=== PATIENT | female | born 1965 | race Caucasian/White ===

== ENCOUNTER 2018-01-03 14:46 | Emergency (ER) | END 2018-01-03 19:55 | disposition home or self-care (01) ==

== ENCOUNTER 2018-07-18 01:24 | Emergency (ER) | payer OTHER ==
[~2018-07-18] VITALS: Ht 157.5 cm; Wt 106.8 kg
[~2018-07-18 01:24] MED LIST: ACET1TAB40 PO; APIX5TAB PO; LEVO150T87 PO; [UNRECOGNIZED DRUG - CODE]
[2018-07-18 01:31] VITALS: BP 134/84; PULSE 101; RESP 18; Ht 157.5 cm; Wt 106.8 kg
[2018-07-18] MEDS ORDERED: KETOROLAC 60 MG INJ IM STA (06:15)
[2018-07-18] MEDS ORDERED: DEXAMETHASONE 10 MG/ML 1 ML INJ IM ONE (06:30)
[2018-07-18] MEDS ORDERED: PRED20TA PO (07:51)
[2018-07-18] MEDS ORDERED: NAPR-985 PO (07:51)
--- NOTE | 2018-07-18 15:43 | ERD ---
ER Documentation Chief Complaint Chief Complaint pain/shakes both legs since yesterday, denies trauma. hx of dvt left leg HPI 52-year-old female presenting with shaking to bilateral legs. Patient states that she has been taking iron pills that sometimes causes her shakiness. Denies any swelling or pain. Denies recent trauma. Denies medical problems. Medical history of DVT. Surgical history on the left knee due to torn meniscus. ROS All systems reviewed and are negative except as per history of present illness. Medications Home Meds Active Scripts Prednisone* (Prednisone*) 20 Mg Tab, 40 MG PO DAILY for 4 Days, #8 TAB Prov:PAOLA RUSS PA-C 07/18/18 Naproxen* (Naprosyn*) 500 Mg Tablet, 500 MG PO BID PRN for PAIN AND/OR INFLAMMATION, #30 TAB Prov:PAOLA RUSS PA-C 07/18/18 Acetaminophen with Codeine (Acetaminophen-Cod #3 Tablet) 1 Each Tablet, 1 TAB PO Q6H PRN for PAIN, #20 TAB Prov:NICKIE ACOSTA PA-C 01/03/18 Apixaban* (Eliquis*) 5 Mg Tablet, 10 MG PO BID for 30 Days, TAB Prov:NICKIE ACOSTA PA-C 01/03/18 Reported Medications Phentermine Hcl (Phentermine Hcl) 37.5 Mg Capsule, daily 12/15/11 Levothyroxine Sodium* (Synthroid*) 150 Mcg Tablet, PO DAILY 09/18/11 Allergies Allergies: Coded Allergies: No Known Allergy (Unverified , 09/18/11) PMhx/Soc History of Surgery: Yes (Thyroidectomy (1983),Gastric Bypass (2002)) Anesthesia Reaction: No Hx Neurological Disorder: No Hx Respiratory Disorders: No Hx Cardiac Disorders: No Hx Psychiatric Problems: No Hx Miscellaneous Medical Probl: Yes (Fragile X Syndrome Carrier;Thyroid CA;L Thigh DVT) Hx Alcohol Use: No Hx Substance Use: No Hx Tobacco Use: Yes Smoking Status: Former smoker FmHx Family History: No diabetes, No coronary disease, No other Physical Exam Vitals Vital Signs Date Temp Pulse Resp B/P (MAP) Pulse Ox O2 O2 Flow FiO2 Time Delivery Rate 07/18/18 98.2 101 18 134/84 100 01:31 (101) Physical Exam GENERAL: The patient is well-appearing, well-nourished, in no acute distress CHEST: Clear to auscultation bilaterally. There are no rales, wheezes or rhonchi. HEART: Regular rate and rhythm. No murmurs, clicks, rubs or gallops. EXTREMITIES: Equal pulses bilaterally. There is no peripheral clubbing, cyanosis or edema. No focal swelling or erythema. Full range of motion. Grossly neurovascularly intact. NEUROLOGIC: Alert and oriented. Cranial nerves II through XII intact. Motor strength in all 4 extremities with 5 out of [address] strength. Sensation grossly inta ct. Normal speech and gait. SKIN: There is no apparent rash or petechiae. The skin is warm and dry. Result Diagram: 07/18/1840 07/18/1840 Results 24 hrs Laboratory Tests Test 07/18/18 06:27 07/18/18 06:40 Urine Color YELLOW Urine Clarity CLEAR Urine pH 6.0 Urine Specific [place] 1.023 Urine Ketones NEGATIVE mg/dL Urine Nitrite NEGATIVE mg/dL Urine Bilirubin NEGATIVE mg/dL Urine Urobilinogen 1+ mg/dL Urine Leukocyte Esterase NEGATIVE Arc[place]/ul Urine Hemoglobin NEGATIVE mg/dL Urine Glucose NEGATIVE mg/dL Urine Total Protein NEGATIVE mg/dl White Blood Count 7.6 10^3/ul Red Blood Count 4.72 10^6/ul Hemoglobin 10.9 g/dl Hematocrit 35.7 % Mean Corpuscular Volume 75.6 fl Mean Corpuscular Hemoglobin 23.1 pg Mean Corpuscular Hemoglobin Concent 30.5 g/dl Red Cell Distribution Width 17.2 % Platelet Count 398 10^3/UL Mean Platelet Volume 9.5 fl Immature Granulocytes % 0.300 % Neutrophils % 69.4 % Lymphocytes % 23.2 % Monocytes % 6.2 % Eosinophils % 0.5 % Basophils % 0.4 % Nucleated Red Blood Cells % 0.0 /100WBC Immature Granulocytes # 0.020 10^3/ul Neutrophils # 5.3 10^3/ul Lymphocytes # 1.8 10^3/ul Monocytes # 0.5 10^3/ul Eosinophils # 0.0 10^3/ul Basophils # 0.0 10^3/ul Nucleated Red Blood Cells # 0.0 10^3/ul Sodium Level 145 mmol/L Potassium Level 4.3 mmol/L Chloride Level 108 mmol/L Carbon Dioxide Level 27 mmol/L Anion Gap 10 Blood Urea Nitrogen 15 mg/dl Creatinine 0.53 mg/dl Est Glomerular Filtrat Rate mL/min > 60 mL/min Glucose Level 112 mg/dl Calcium Level 9.3 mg/dl Total Bilirubin 0.2 mg/dl Direct Bilirubin 0.00 mg/dl Indirect Bilirubin 0.2 mg/dl Aspartate Amino Transf (AST/SGOT) 26 IU/L Alanine Aminotransferase (ALT/SGPT) 21 IU/L Alkaline Phosphatase 115 IU/L Total Protein 7.6 g/dl Albumin 4.4 g/dl Globulin 3.20 g/dl Albumin/Globulin Ratio 1.37 Current Medications Medications Dose Sig/[place] Start Time Status Last (Trade) Ordered Route PRN Stop Time Admin Dose Reason Admin 10 mg ONCE ONCE 07/18/18 DC 07/18/18 Dexamethasone IM 06:30 07/18/18 06:53 (Decadron) 06:31 Ketorolac 60 mg ONCE STAT 07/18/18 DC 07/18/18 Tromethamine IM 06:15 07/18/18 06:53 (Toradol) 06:16 Procedures/MDM MDM: 52-year-old female presenting with shaking legs. Patient's exam is non- concerning. I have low suspicion for electrolyte imbalance. I have low suspicion for infectious etiology. I have low suspicion for neuro deficit. Patient is discharged stricter precautions and told to follow-up with primary care within 1-2 days for close evaluation. Patient is told if symptoms change or worsen to return immediately to the ER. All questions answered at discharge Departure Diagnosis: Primary Impression: Bilateral leg pain Condition: Stable Patient Instructions: Paraesthesias Referrals: [facility] YOU HAVE RECEIVED A MEDICAL SCREENING EXAM AND THE RESULTS INDICATE THAT YOU DO NOT HAVE A CONDITION THAT REQUIRES URGENT TREATMENT IN THE EMERGENCY DEPARTMENT. FURTHER EVALUATION AND TREATMENT OF YOUR CONDITION CAN WAIT UNTIL YOU ARE SEEN IN YOUR DOCTORS OFFICE WITHIN THE NEXT 1-2 DAYS. IT IS YOUR RESPONSIBILITY TO MAKE AN APPOINTMENT FOR FOLOW-UP CARE. IF YOU HAVE A PRIMARY DOCTOR --you should call your primary doctor and schedule an appointment IF YOU DO NOT HAVE A PRIMARY DOCTOR YOU CAN CALL OUR PHYSICIAN REFERRAL HOTLINE AT IF YOU CAN NOT AFFORD TO SEE A PHYSICIAN YOU CAN CHOSE FROM THE FOLLOWING [facility] [address]. [facility] [address] [facility] [address] [facility] [address] [facility] [address] [facility]. [facility] [address] Additional Instructions: FOLLOW UP WITH YOUR PRIMARY CARE PHYSICIAN TOMORROW.Return to this facility if you are not improving as expected. PAOLA RUSS PA-C Jul 18, 2018 15:43
== END 2018-07-18 08:04 | disposition home or self-care (01) ==
LOC: FTE 01:24
DX: M79.604 Pain in right leg (principal); M79.605 Pain in left leg; Z85.850 Personal history of malignant neoplasm of thyroid; Z87.891 Personal history of nicotine dependence
CPT/HCPCS: 80053; 81003; 85025; 96372; J1100; J1885; Z7502

== ENCOUNTER 2018-12-10 19:05 | Emergency (ER) | payer OTHER ==
[~2018-12-10] VITALS: Ht 157.5 cm; Wt 96.9 kg
[~2018-12-10 19:05] MED LIST changes: +NAPR-985 PO; +PRED20TA PO
[2018-12-10 19:19] VITALS: Ht 157.5 cm; Wt 96.9 kg
[2018-12-10] MEDS ORDERED: ACETAMINOPHEN 325 MG TAB PO ONE (20:00)
[2018-12-10] MEDS ORDERED: LIDOCAINE 1% (MDV) 10 ML INJ INJ STA (20:00)
[2018-12-10] MEDS ORDERED: ACET1TAB40 PO (20:22)
[2018-12-10] MEDS ORDERED: CIPR500T4 PO (20:22)
--- NOTE | 2018-12-10 20:26 | ERD ---
ER Documentation Chief Complaint Chief Complaint left foot lac, stepped on metal x 10 min ago HPI 52-year-old female sustained a laceration of the left foot after stepping on a metal object which is been sticking up from the dirt in her yard. Tetanus is up-to-date. She has had bleeding. She is on Xarelto for left lower extremity DVT. The object is some type of the latch of a door did not break patient is 100% confident there is no broken part of the metal. Her primary complaint of laceration of foot denies bony pain or restricted range of motion or deficits. ROS All systems reviewed and are negative except as per history of present illness. Medications Home Meds Active Scripts Acetaminophen with Codeine (Acetaminophen-Cod #3 Tablet) 1 Each Tablet, 1 TAB PO Q6H PRN for PAIN, #10 TAB Prov:ALCON MEJIA MD 12/10/18 Ciprofloxacin Hcl* (Ciprofloxacin Hcl*) 500 Mg Tablet, 500 MG PO BID for 5 Days, TAB Prov:ALCON MEJIA MD 12/10/18 Prednisone* (Prednisone*) 20 Mg Tab, 40 MG PO DAILY for 4 Days, #8 TAB Prov:PAOLA RUSS PA-C 07/18/18 Naproxen* (Naprosyn*) 500 Mg Tablet, 500 MG PO BID PRN for PAIN AND/OR INFLAMMATION, #30 TAB Prov:PAOLA RUSS PA-C 07/18/18 Acetaminophen with Codeine (Acetaminophen-Cod #3 Tablet) 1 Each Tablet, 1 TAB PO Q6H PRN for PAIN, #20 TAB Prov:NICKIE ACOSTA PA-C 01/03/18 Apixaban* (Eliquis*) 5 Mg Tablet, 10 MG PO BID for 30 Days, TAB Prov:NICKIE ACOSTA PA-C 01/03/18 Reported Medications Phentermine Hcl (Phentermine Hcl) 37.5 Mg Capsule, daily 12/15/11 Levothyroxine Sodium* (Synthroid*) 150 Mcg Tablet, PO DAILY 09/18/11 Allergies Allergies: Coded Allergies: No Known Allergy (Unverified , 09/18/11) PMhx/Soc History of Surgery: Yes (Thyroidectomy (1983),Gastric Bypass (2002)) Anesthesia Reaction: No Hx Neurological Disorder: No Hx Respiratory Disorders: No Hx Cardiac Disorders: No Hx Psychiatric Problems: No Hx Miscellaneous Medical Probl: Yes (Fragile X Syndrome Carrier;Thyroid CA;L Thigh DVT) Hx Alcohol Use: No Hx Substance Use: No Hx Tobacco Use: Yes Smoking Status: Never smoker FmHx Family History: No diabetes, No coronary disease, No other Physical Exam Vitals Vital Signs Date Temp Pulse Resp B/P (MAP) Pulse Ox O2 O2 Flow FiO2 Time Delivery Rate 12/10/18 98.7 80 18 144/92 98 19:19 (109) Physical Exam Const: No acute distress Head: Atraumatic Eyes: Normal Conjunctiva ENT: Normal External Ears, Nose and Mouth. Neck: Full range of motion. No meningismus. Resp: Clear to auscultation bilaterally Cardio: Regular rate and rhythm, no murmurs Abd: Soft, non tender, non distended. Normal bowel sounds Skin: No petechiae or rashes Back: No midline or flank tenderness Ext: No cyanosis, or edema. Approximately 2 cm U-shaped laceration on the plantar surface of the foot. Approximately 0.5 cm deep. Minimal oozing. Neur: Awake and alert Psych: Normal Mood and Affect Results 24 hrs Current Medications Medications Dose Sig/Meg[place] Start Time Status Last (Trade) Ordered Route PRN Stop Time Admin Dose Reason Admin 650 mg ONCE ONCE 12/10/18 DC 12/10/18 Acetaminophen PO 20:00 20:12 (Tylenol 12/10/18 20:01 Tab) Lidocaine 10 ml ONCE STAT 12/10/18 DC HCl INJ 20:00 (Lidocaine 12/10/18 20:01 1% (Mdv) 10 ml) Procedures/MDM Patient presents with a laceration on the left lower extremity on the plantar surface of her foot. Procedure note-left lower extremity was irrigated copiously in the area of laceration. 3 cc lidocaine was used for local infiltration. Three 4-0 nylon sutures were used to approximate the wound. Patient tolerated procedure well. There is no appreciable foreign body, She was placed in a left lower extremity postop shoe was neurovascular intact shoe and wound dressing. Patient was discharged home with instructions for 2- day wound check in 7 to 10 days suture removal. We will administer a prescr iption of Cipro for the object which went through her to sole. She is advised to recheck sooner for redness, fevers, new worsening symptoms otherwise for wound check in 2 days as directed. Doubt fracture, foreign body and no signs of infection. Departure Diagnosis: Primary Impression: Laceration Condition: Stable Patient Instructions: Laceration, Foot Referrals: DOCTOR,NOT ON STAFF (PCP) Additional Instructions: Recommend check in 2 days for infection and suture removal in 7 to 10 days. Recheck sooner for fevers, redness, new or worsening symptoms. ALCON MEJIA MD Dec 10, 2018 20:26
[2018-12-10 21:28] VITALS: BP 136/90; PULSE 66; RESP 18
== END 2018-12-10 21:28 | disposition home or self-care (01) ==
LOC: FTE 19:05
DX: S91.312A Laceration without foreign body, left foot, initial encounter (principal); W26.8XXA Contact with other sharp object(s), not elsewhere classified, initial encounter; Y92.9 Unspecified place or not applicable; Z87.891 Personal history of nicotine dependence
CPT/HCPCS: 12001; L3260; Z7502; Z7610